=== PATIENT | female | born 1995 | race Native Hawaiian/Other Pacific Islander ===

== ENCOUNTER 2017-08-16 10:34 | Emergency (ER) | payer OTHER ==
[~2017-08-16] VITALS: Ht 162.6 cm; Wt 59.0 kg
[2017-08-16] MEDS ORDERED: IRON325 MG OR (10:50)
[2017-08-16 11:08] LABS: PLATELET COUNT 186 K/uL (152-353)
== END 2017-08-16 11:30 | disposition home or self-care (01) ==
LOC: ED 10:34
PROVIDERS: Family Medicine
DX: R07.89 Other chest pain (principal)
CPT/HCPCS: 81000; 85027; 87077; 87086; 87088; 87186; 99283